=== PATIENT | female | born 1945 | race Caucasian/White ===

== ENCOUNTER 2019-11-13 06:56 | Outpatient (NON) | payer MEDICARE, SELFPAY ==
[2019-11-13 16:16] LABS: SARS-CoV-2 RNA PCR Negative
== END 2019-11-13 06:57 ==
PROVIDERS: Visit Provider Emergency Medicine
DX: Z11.59 Encounter for screening for other viral diseases (principal)
CPT/HCPCS: 87635; C9803; U0003